=== PATIENT | female | born 1970 | race Hispanic/Latino ===

== ENCOUNTER 2018-09-23 04:45 | Emergency (ER) | payer MEDICAID, SELFPAY ==
[2018-09-23] MEDS ORDERED: traMADol HCl 50 MG TAB ONE (05:14)
[2018-09-23] MEDS ORDERED: Cyclobenzaprine 10 MG TAB ONE (05:14)
== END 2018-09-23 05:25 | disposition home or self-care (01) ==
LOC: NAV ERS 04:45
DX: M54.42 Lumbago with sciatica, left side (principal); I10 Essential (primary) hypertension; E66.9 Obesity, unspecified
CPT/HCPCS: 99283

== ENCOUNTER 2021-04-17 20:46 | Emergency (ER) | payer SELFPAY ==
[2021-04-17 23:55] LABS: Band 10 % (5-11); Hemoglobin 13.7 g/dL (12.0-16.0); Lymphocytes 13 % (21-51); MDiff Complete? YES; Mean Corpuscular HGB CONC 30.9 g/dL (32.0-36.0); Mean Corpuscular Hemoglobin 27.7 pg (27.0-31.0); Mean Corpuscular Volume 89.6 fL (78.0-98.0); Mean Platelet Volume 8.3 fL (7.4-10.4); Monocytes 2 % (0-10); Neutrophil 75 % (42-75); Platelet Count 265 thou/uL (130-400); Platelet Morphology Comment Appears Adequate; RBC Distribution Width 15.3 % (11.5-14.5); RBC Morphology Normal; Red Blood Cell (RBC) Count 4.96 mill/uL (4.20-5.40); White Blood Cell (WBC) Count 13.3 thou/uL (4.8-10.8)
[2021-04-18 00:37] LABS: ALT (SGPT) 62 U/L (8-55); AST (SGOT) 63 U/L (5-34); Albumin 3.3 g/dL (3.5-5.0); Alkaline Phosphatase 181 U/L (40-110); Anion Gap 14 mmol/L (10-20); BUN (Urea Nitrogen) 16 mg/dL (7.0-18.7); Bilirubin, Total 0.5 mg/dL (0.2-1.2); Calcium 8.6 mg/dL (7.8-10.44); Carbon Dioxide 24 mmol/L (22-29); Chloride 106 mmol/L (98-107); Globulin 4.8 g/dL (2.4-3.5); Glucose 133 mg/dL (70-105); Potassium 3.4 mmol/L (3.5-5.1); Protein, Total 8.1 g/dL (6.0-8.3); Sodium 141 mmol/L (136-145)
[2021-04-18 00:56] LABS: CKMB 1.1 ng/mL (0-6.6)
[2021-04-18 00:57] LABS: Calc. Creatinine Clearance 0 mL/min (70-130)
[2021-04-18] MEDS ORDERED: Enoxaparin Sodium 120 MG/0.8 ML SYRINGE SC ONE (02:10)
[2021-04-18] MEDS ORDERED: Azithromycin 500 MG VIAL ONE (02:10)
[2021-04-18] MEDS ORDERED: Dexamethasone 4 mg/ml Vial ONE (02:10)
[2021-04-18] MEDS ORDERED: Sodium Chloride 0.9% 0 ML ONE (02:11)
[2021-04-18] MEDS ORDERED: Sodium Chloride 0.9% 100 ML ONE (02:12)
[2021-04-18 02:14] LABS: SARS-CoV-2 NAA Rapid Test DETECTED (NotDetected)
[2021-04-18] MEDS ORDERED: Aspirin Chewable 81 MG TAB ONE (07:31)
[2021-04-18 08:44] LABS: CKMB 1.5 ng/mL (0-6.6)
[2021-04-18 09:01] LABS: CKMB 1.4 ng/mL (0-6.6)
== END 2021-04-18 13:14 | disposition short-term general hospital (02) ==
LOC: NAV ERS 20:46
DX: U07.1 COVID-19 (principal); J12.82 Pneumonia due to coronavirus disease 2019; I51.7 Cardiomegaly
CPT/HCPCS: 36415; 71045; 80053; 82553; 83605; 83880; 84484; 85025; 85379; 87040; 93005; 96365; 96372; 96375; J0456; J1100; J1650; J3490; U0002